=== PATIENT | female | born 1950 | race Caucasian/White ===

== ENCOUNTER 2018-09-26 15:09 | Emergency (ER) | payer MEDICARE ==
[~2018-09-26] VITALS: Ht 180.3 cm; Wt 81.8 kg
[2018-09-26 15:35] VITALS: Ht 180.3 cm; Wt 81.8 kg
[2018-09-26] MEDS ORDERED: COZAAR25 MG PO (15:36)
[2018-09-26] MEDS ORDERED: BUSPAR10 MG PO (15:37)
[2018-09-26] MEDS ORDERED: PROSCAR5 MG PO (15:37)
[2018-09-26] MEDS ORDERED: PROCARDIA10 MG PO (15:37)
[2018-09-26] MEDS ORDERED: LOPRESSOR25 MG PO (15:37)
[2018-09-26] MEDS ORDERED: BUPROPION HCL100 MG PO (15:38)
[2018-09-26] MEDS ORDERED: TORADOL10 MG PO (16:32)
[2018-09-26 16:44] VITALS: BP 140/74
== END 2018-09-26 16:44 | disposition home or self-care (01) ==
LOC: D.ER 15:09
DX: S76.811A Strain of other specified muscles, fascia and tendons at thigh level, right thigh, initial encounter (principal); W18.30XA Fall on same level, unspecified, initial encounter; Y93.89 Activity, other specified; Y92.89 Other specified places as the place of occurrence of the external cause; I10 Essential (primary) hypertension